=== PATIENT | male | born 1975 | race Caucasian/White ===

== ENCOUNTER 2025-01-26 17:11 | Emergency (ER) | payer MEDICARE, MEDICAID ==
[~2025-01-26] VITALS: Ht 175.3 cm; Wt 73.1 kg
[2025-01-26 17:19] VITALS: BP_DIAS 75
[2025-01-26] MEDS ORDERED: ONDANSETRON 4MG ORAL DISINTEGRATING TAB PO PRN (19:55)
[2025-01-26 20:17] VITALS: BP_SYST 78; TEMP 98; O2SAT 97
== END 2025-01-26 20:25 | disposition home or self-care (01) ==
LOC: M ED 17:11 → EDBD 17:11 → M ED 20:25
DX: S06.0X0A Concussion without loss of consciousness, initial encounter (principal); Y92.9 Unspecified place or not applicable; Y93.9 Activity, unspecified; Y99.9 Unspecified external cause status; Z88.0 Allergy status to penicillin